=== PATIENT | male | born 1975 ===

== ENCOUNTER 2017-10-01 13:02 | Outpatient (CLI) | payer OTHER | END 2017-10-01 13:16 | disposition home or self-care (01) | LOC: RAD 13:02 | DX: M25.561 Pain in right knee (principal); M25.551 Pain in right hip; M79.651 Pain in right thigh; M54.5 Low back pain ==

== ENCOUNTER → 2017-10-01 | Outpatient (CLI) | payer OTHER ==
[~2017-10-01] VITALS: Ht 152.4 cm; Wt 77.6 kg
== END | disposition home or self-care (01) ==
LOC: PPHC 11:59
DX: M25.551 Pain in right hip (principal); M79.651 Pain in right thigh; G89.11 Acute pain due to trauma